=== PATIENT | male | born 1985 | race Caucasian/White ===

== ENCOUNTER 2025-02-01 23:41 | Emergency (ER) | payer OTHER ==
[~2025-02-01] VITALS: Ht 170.2 cm; Wt 69.9 kg
[2025-02-02] MEDS ORDERED: NAPR-1009 PO (01:46)
[2025-02-02 01:58] VITALS: BP 144/87; O2SAT 100
== END 2025-02-02 02:00 | disposition home or self-care (01) ==
LOC: ER 23:59
DX: M20.021 Boutonniere deformity of right finger(s) (principal); M79.644 Pain in right finger(s); R03.0 Elevated blood-pressure reading, without diagnosis of hypertension; J45.909 Unspecified asthma, uncomplicated; W49.04XA Ring or other jewelry causing external constriction, initial encounter; Y93.67 Activity, basketball; Y92.89 Other specified places as the place of occurrence of the external cause; Y99.8 Other external cause status
CPT/HCPCS: 73140; A4606; A4663